=== PATIENT | female | born 1995 | race Caucasian/White ===

== ENCOUNTER 2021-08-09 08:35 | Emergency (ER) | payer MEDICAID ==
[~2021-08-09] VITALS: Ht 152.4 cm; Wt 56.7 kg
[2021-08-09 08:45] VITALS: BP 108/71
--- NOTE | 2021-08-09 08:52 | NUR ---
PATIENT AMBULATED WITH STEADY GAIT TO BED 5.
[2021-08-09] MEDS ORDERED: ALUMINUM HYD/MAG/SIMETHICONE 30 ML UDC PO ONE (08:55)
[2021-08-09] MEDS ORDERED: FAMOTIDINE 20 MG TAB PO ONE (08:55)
[2021-08-09] MEDS ORDERED: SIMETHICONE 40 MG/0.6 ML PO ONE (08:55)
--- NOTE | 2021-08-09 09:32 | NUR ---
26 C/O STOMACH AND ABD PAIN FOR ONE WEEK ON AND OFF. TODAY PAIN IS 7/10 AND SHE FEELS BLOATED. SHE SAW HER PCP AND WAS TOLD TO GO TO ED IF SYMPTOMS CONTINUE. PT DENIES N/V/D. NKA OR PMH
--- NOTE | 2021-08-09 09:36 | NUR ---
26/F BIB SELF WITH C/O ABDOMINAL PAIN AND BLOATING X4 WEEKS. STATES SHE WAS SEEN BY HER PCP AND WAS REFERRED TO ED IF PAIN DID NOT RESOLVE. REPORTS RECEIVING UNKNOWN RX FROM HER PCP BUT STATES SHE HAS FOUND NO RELIEF. REPORTS 8/10 PRESSURE/SHARP PAIN THAT IN INTERMITTENT. DENIES CP, N/V/D OR URINARY SYMPTOMS.
[2021-08-09 09:38] LABS: BASOPHILS # (AUTO) 0.1 K/uL (0.00-0.22); BASOPHILS % (AUTO) 0.9 % (0.0-2.0); EOSINOPHILS # (AUTO) 0.1 K/uL (0-0.4); EOSINOPHILS % (AUTO) 1.5 % (0.0-4.0); HEMATOCRIT 38.5 % (36-48); HEMOGLOBIN 13.2 g/dL (12.0-16.0); LYMPHOCYTES # (AUTO) 2.3 K/uL (2.5-16.5); LYMPHOCYTES % (AUTO) 39.4 % (20.5-51.1); MEAN CORPUSCULAR HEMOGLOBIN 29 pg (27-31); MEAN CORPUSCULAR HGB CONC 34 g/dL (33-37); MEAN CORPUSCULAR VOLUME 84.3 fL (80-94); MONOCYTES # (AUTO) 0.4 K/uL (0.8-1.0); MONOCYTES % (AUTO) 7.8 % (1.7-9.3); NEUTROPHILS # (AUTO) 2.9 K/uL (1.8-7.7); NEUTROPHILS % (AUTO) 50.4 % (42.2-75.2); PLATELET COUNT (AUTO) 238 K/uL (140-450); RED BLOOD CELL COUNT(AUTO) 4.57 MIL/uL (4.20-5.40); RED CELL DISTRIBUTION WIDTH 13.4 % (11.6-13.7); WHITE BLOOD COUNT (AUTO) 5.7 K/uL (4.8-10.8)
[2021-08-09 09:57] LABS: ALBUMIN 3.9 g/dL (3.4-5.0); ANION GAP 13.2 (8-16); CARBON DIOXIDE 22.8 mmol/L (21-32); CREATININE 0.7 mg/dL (0.6-1.3); TOTAL BILIRUBIN 0.4 mg/dL (0.0-1.0)
--- NOTE | 2021-08-09 10:35 | NUR ---
PT BACK FROM CT.
[2021-08-09 12:36] VITALS: BP 96/73
--- NOTE | 2021-08-09 12:37 | NUR ---
Patient discharged with v/s stable. Written and verbal after care instructions given and explained. Patient verbalized understanding. Ambulatory with steady gait. All questions addressed prior to discharge. Advised to follow up with PMD.
--- NOTE | 2021-08-09 13:54 | NUR ---
Chart checked and completed. The patient's care was reviewed and supervised by Marisel Rhodes RN.
== END 2021-08-09 12:37 | disposition home or self-care (01) ==
LOC: MED 08:35
DX: R10.12 Left upper quadrant pain (principal)
CPT/HCPCS: 36415; 80053; 81002; 81025; 83690; 84703; 85025; 99284